=== PATIENT | male | born 1945 | race Caucasian/White ===

== ENCOUNTER → 2016-11-09 | Outpatient (CLI) | payer MEDICARE, OTHER ==
[~2016-11-09] MED LIST: ASPIRIN E.C. 8181 MG PO; AZULFIDINE500 MG/TAB PO; BODY AND VISION PO; CRANBERRY FRUI475 MG PO; FISH OIL1000 MG PO; FLOMAX 0.40.4 MG/CAP PO; MAGNESIUM500 MG PO; MOBIC15 MG PO; MULTIPLE VITAMI1 CAP PO; NORVASC 10MG10 MG PO; PROSCAR 5MG5 MG PO; VITAMIN D31 LIQ PO; [UNRECOGNIZED DRUG - OTHER] PO
== END ==
LOC: COL.RAD 12:07
DX: M48.02 Spinal stenosis, cervical region (principal); M54.2 Cervicalgia; M54.12 Radiculopathy, cervical region; M48.06 Spinal stenosis, lumbar region; M96.1 Postlaminectomy syndrome, not elsewhere classified
CPT/HCPCS: A9585

== ENCOUNTER → 2020-08-08 | Outpatient (CLI) | payer MEDICARE | LOC: COL.RAD 12:45 | DX: M53.3 Sacrococcygeal disorders, not elsewhere classified (principal) | CPT/HCPCS: G0260; J3301 ==

== ENCOUNTER → 2020-11-17 | Outpatient (CLI) | payer MEDICARE | LOC: COL.RAD 08:00 | DX: M53.3 Sacrococcygeal disorders, not elsewhere classified (principal) | CPT/HCPCS: G0260; J3301 ==

== ENCOUNTER → 2020-12-12 | Outpatient (CLI) | payer MEDICARE | LOC: COL.RAD 15:17 | DX: Z09 Encounter for follow-up examination after completed treatment for conditions other than malignant neoplasm (principal); Z98.1 Arthrodesis status; Z96.643 Presence of artificial hip joint, bilateral ==

== ENCOUNTER → 2021-05-19 | Outpatient (CLI) | payer MEDICARE | LOC: COL.RAD 07:53 | DX: M25.552 Pain in left hip (principal); M25.551 Pain in right hip | CPT/HCPCS: G0260; J3301 ==

== ENCOUNTER 2022-01-25 12:45 | Outpatient (RCR) | payer MEDICARE | END 2022-01-28 | disposition home or self-care (01) | LOC: WSOT | DX: M79.641 Pain in right hand (principal) ==

== ENCOUNTER → 2022-01-26 | Outpatient (CLI) | payer MEDICARE | LOC: COL.RAD 12:47 | DX: M46.1 Sacroiliitis, not elsewhere classified (principal) | CPT/HCPCS: G0260; J3301 ==

== ENCOUNTER → 2022-06-14 | Outpatient (CLI) | payer MEDICARE | LOC: COL.RAD 08:50 | DX: S46.811A Strain of other muscles, fascia and tendons at shoulder and upper arm level, right arm, initial encounter (principal); X58.XXXA Exposure to other specified factors, initial encounter | CPT/HCPCS: Q9967 ==

== ENCOUNTER → 2022-06-16 | Outpatient (CLI) | payer MEDICARE | LOC: COL.RAD 07:01 | DX: M46.1 Sacroiliitis, not elsewhere classified (principal); M54.50 Low back pain, unspecified | CPT/HCPCS: G0260; J3301 ==

== ENCOUNTER 2022-07-24 14:57 | Emergency (ER) | payer MEDICARE ==
[~2022-07-24] VITALS: Ht 180.3 cm; Wt 81.8 kg
[2022-07-24 15:02] VITALS: TEMP 97
[2022-07-24 16:57] VITALS: BP 152/76; PULSE 58
== END 2022-07-24 17:07 | disposition home or self-care (01) ==
LOC: COL.ER 14:57
DX: S61.422A Laceration with foreign body of left hand, initial encounter (principal); Z28.310 Unvaccinated for COVID-19; Z23 Encounter for immunization; W26.8XXA Contact with other sharp object(s), not elsewhere classified, initial encounter; Y92.59 Other trade areas as the place of occurrence of the external cause; Y99.0 Civilian activity done for income or pay

== ENCOUNTER → 2022-11-24 | Outpatient (CLI) | payer MEDICARE | LOC: COL.RAD 13:42 | DX: M46.1 Sacroiliitis, not elsewhere classified (principal); M54.50 Low back pain, unspecified | CPT/HCPCS: G0260; J3301 ==

== ENCOUNTER → 2023-03-01 | Outpatient (CLI) | payer MEDICARE | LOC: COL.RAD 11:35 | DX: M43.16 Spondylolisthesis, lumbar region (principal); M48.07 Spinal stenosis, lumbosacral region; M51.27 Other intervertebral disc displacement, lumbosacral region | CPT/HCPCS: A9575 ==

== ENCOUNTER → 2024-06-25 | Outpatient (CLI) | payer MEDICARE ==
[~2024-06-25] MED LIST changes: +Triamcinolone 40 MG/ML 1 ML VIAL IJ SCH
== END ==
LOC: COL.RAD 13:00
DX: M46.1 Sacroiliitis, not elsewhere classified (principal)
CPT/HCPCS: G0260; J0665; J3301

== ENCOUNTER → 2024-08-08 | Outpatient (CLI) | payer MEDICARE ==
[~2024-08-08] VITALS: Ht 180.3 cm; Wt 78.1 kg
[~2024-08-08] MED LIST changes: +AVODART 0.5MG0.5 MG PO; +B COMPLEX #11 TA1 PO; +GLUCOPHAGE1000 MG PO; +HCTZ12.5TAB PO; +LIORESAL 1010 MG/TAB PO; +NEURONTIN300 MG/CAP PO; +ZESTRIL 5MG5 MG PO; +[UNRECOGNIZED DRUG - OTHER]
[2024-08-08 09:09] VITALS: BP 158/83; PULSE 68; TEMP 97.7
--- NOTE | 2024-08-08 09:17 | NUR ---
PATIENT DECLINES TO HAVE A COPY OF THE DISCHARGE INSTRUCTIONS AND STATES HE IS AWARE OF THEM. DISCHARGE INSTRUCTIONS REVIEWED WTIH HIM AND HE CAN TEACH BACK.
[2024-08-08 09:40] VITALS: BP 149/93; PULSE 65
--- NOTE | 2024-08-08 10:03 | NUR ---
PATIENT COMPLETED HIS RECOVERY PERIOD WITHOUT ISSUE. PATIENT STATES HE HAS NO NEW NUMBNESS OR TINGLING OR PAIN. BANDAGE REMAINS CLEAN, DRY, AND INTACT. PATIENT FINISHED HIS JUICE WITHOUT ANY ISSUES. PATIENT IS ABLE TO WALK WITHOUT ANY ISSUES OR ASSISTANCE. ESCORTED PATIENT VIA WHEELCHAIR WITH ALL OF HIS PERSONAL ITEMS TO THE PATIENT ENTRANCE. PATIENT'S RIDE WAS WAITING THERE AND HE WAS ABLE TO GET INTO FRONT PASSENGER SEAT WITHOUT ANY ISSUES. ALL NEEDS MET.
== END ==
LOC: COL.RAD 08:20
DX: M54.50 Low back pain, unspecified (principal)
CPT/HCPCS: J0665; J3301